=== PATIENT | male | born 1955 | race Caucasian/White ===

== ENCOUNTER 2019-05-01 07:24 | Day surgery (SDC) | payer BC ==
[2005-09-27 06:14] VITALS: BP 139/77
[~2019-05-01] VITALS: Ht 182.9 cm; Wt 146.2 kg
[2019-05-01] MEDS ORDERED: NORVASC 5MG5 MG/TAB PO (07:38)
[2019-05-01] MEDS ORDERED: PRINZIDE 12.5 M1 TA1 PO (07:38)
[2019-05-01 07:44] VITALS: BP 129/60; PULSE 70; TEMP 98.6
[2019-05-01 08:40] VITALS: BP 121/83; PULSE 75; TEMP 98.5
--- NOTE | 2019-05-01 08:40 | NUR ---
Pt to GI bay 2 via cart from [facility]. Pt awake and alert. Pt ambulates to recliner with stand by assistance. Pt placed on monitor. VSS. in room. Muffin and coffee given per pt request. Will continue to monitor. Call light within reach.
[2019-05-01 08:45] VITALS: BP 112/65; PULSE 73
--- NOTE | 2019-05-01 08:45 | NUR ---
Pt visiting with family. Denies needs. Call light within reach.
[2019-05-01 09:00] VITALS: BP 111/68; PULSE 72
--- NOTE | 2019-05-01 09:00 | NUR ---
Pt tolerating food and fluids without difficulties. Denies needs.
--- NOTE | 2019-05-01 09:15 | NUR ---
IV site discontinued with all parts intact. Discharge instructions reviewed. Pt voices understanding. Pt up to dress. Call light within reach.
--- NOTE | 2019-05-01 09:25 | NUR ---
Pt escorted to private car via wheel chair. Pt accompanied home by his .
== END 2019-05-01 09:25 | disposition home or self-care (01) ==
LOC: SDCO 07:24
DX: Z12.11 Encounter for screening for malignant neoplasm of colon (principal); Z80.0 Family history of malignant neoplasm of digestive organs; Z85.46 Personal history of malignant neoplasm of prostate
CPT/HCPCS: J2250; J3010; J7030

== ENCOUNTER → 2021-12-29 | Outpatient (CLI) | payer BC ==
[~2021-12-29] MED LIST: NORVASC 5MG5 MG/TAB PO; PRINZIDE 12.5 M1 TA1 PO
== END ==
LOC: COL.VAS 12:40
DX: I65.23 Occlusion and stenosis of bilateral carotid arteries (principal)